=== PATIENT | male | born 1945 | race Caucasian/White ===

== ENCOUNTER 2017-09-25 10:35 | Inpatient (IN) | payer MEDICARE, BC ==
[2017-09-25] MEDS: NITROGLYCERIN 2% 1 GM OINT PKT TD (11:29)
[2017-09-25] MEDS: ASPIRIN 325 MG TAB PO (11:29)
[2017-09-25] MEDS: FUROSEMIDE 40 MG INJ IV (11:30)
[2017-09-25 11:39] LABS: ADD MAN DIFF? NO
[2017-09-25 11:41] LABS: BASOPHILS % 0.2 % (0.0-2.0); EOSINOPHILS % 0.1 % (0.0-7.0); HEMATOCRIT 34.9 % (42.0-52.0); HEMOGLOBIN 11.3 g/dl (14.0-18.0); LYMPHOCYTES # 0.6 10^3/ul (0.8-2.9); LYMPHOCYTES % 5.6 % (15.0-51.0); MEAN CORPUSCULAR HEMOGLOBIN 28.7 pg (29.0-33.0); MEAN CORPUSCULAR HGB CONC 32.4 g/dl (32.0-37.0); MEAN CORPUSCULAR VOLUME 88.6 fl (82.0-101.0); MEAN PLATELET VOLUME 10.9 fl (7.4-10.4); MONOCYTE # 1.1 10^3/ul (0.3-0.9); MONOCYTES % 9.9 % (0.0-11.0); NEUTROPHIL # 9.5 10^3/ul (1.6-7.5); NEUTROPHILS % 83.7 % (39.0-77.0); PLATELET COUNT 138 10^3/UL (140-415); POSITIVE DIFF @See below; RED BLOOD COUNT 3.94 10^6/ul (4.70-6.10); RED CELL DISTRIBUTION WIDTH 15.1 % (11.5-14.5)
[2017-09-25 11:41] LABS: WHITE BLOOD COUNT 11.4 10^3/ul (4.8-10.8)
[2017-09-25 12:15] LABS: ALANINE AMINOTRANSFERASE 42 IU/L (13-69); ALBUMIN 4.2 g/dl (3.3-4.9); ALKALINE PHOSPHATASE 87 IU/L (42-121); ANION GAP 19 (8-16); ASPARTATE AMINO TRANSFERASE 24 IU/L (15-46); BILIRUBIN,INDIRECT 0.7 mg/dl (0-1.1); BILIRUBIN,TOTAL 0.7 mg/dl (0.2-1.3); BLOOD UREA NITROGEN 12 mg/dl (7-20); CALCIUM 8.8 mg/dl (8.4-10.2); CARBON DIOXIDE 30 mmol/L (21-31); CHLORIDE 98 mmol/L (97-110); CREATININE 0.93 mg/dl (0.61-1.24); GLUCOSE 134 mg/dl (70-220); POTASSIUM 3.9 mmol/L (3.5-5.1); SODIUM 143 mmol/L (135-144)
[2017-09-25 12:19] LABS: PROTIME 14.4 Sec (11.9-14.9); PT RATIO 1.1
[2017-09-25 12:20] LABS: PARTIAL THROMBOPLASTIN TIME 31.9 Sec (25.0-35.0)
[2017-09-25 12:29] LABS: B-TYPE NATRIURETIC PEPTIDE 2550 PG/ML (0-125)
[2017-09-25] MEDS ORDERED: ACETAMINOPHEN 325 MG TAB PO (13:00)
[2017-09-25] MEDS ORDERED: ONDANSETRON 4 MG INJ IV (13:00)
[2017-09-25] MEDS ORDERED: NITROGLYCERIN (SL) 0.4 MG TAB SL (16:30)
[2017-09-25 17:48] LABS: CREATINE KINASE 79 IU/L (23-200)
[2017-09-25 18:02] LABS: CK INDEX 3.2
[2017-09-25 18:06] LABS: CK-MB 2.51 ng/ml (0.0-2.4); TROPONIN-I 0.433 ng/ml (0.00-0.12)
[2017-09-25] MEDS: METOPROLOL 50 MG TAB PO (20:41)
[2017-09-25] MEDS: DOXAZOSIN 4 MG TAB PO (20:41)
[2017-09-25] MEDS: ATORVASTATIN 80 MG TAB PO (20:41)
[2017-09-26 00:09] LABS: CREATINE KINASE 73 IU/L (23-200)
[2017-09-26 00:22] LABS: CK INDEX 2.8
[2017-09-26 00:49] LABS: CK-MB 2.01 ng/ml (0.0-2.4); TROPONIN-I 0.567 ng/ml (0.00-0.12)
[2017-09-26 07:55] LABS: ADD MAN DIFF? NO
[2017-09-26 08:07] LABS: BASOPHILS % 0.3 % (0.0-2.0); EOSINOPHILS # 0.1 10^3/ul (0.0-0.5); EOSINOPHILS % 1.2 % (0.0-7.0); HEMATOCRIT 30.1 % (42.0-52.0); HEMOGLOBIN 9.7 g/dl (14.0-18.0); LYMPHOCYTES # 0.9 10^3/ul (0.8-2.9); LYMPHOCYTES % 13.1 % (15.0-51.0); MEAN CORPUSCULAR HEMOGLOBIN 28.6 pg (29.0-33.0); MEAN CORPUSCULAR HGB CONC 32.2 g/dl (32.0-37.0); MEAN CORPUSCULAR VOLUME 88.8 fl (82.0-101.0); MEAN PLATELET VOLUME 10.8 fl (7.4-10.4); MONOCYTE # 0.8 10^3/ul (0.3-0.9); MONOCYTES % 11.3 % (0.0-11.0); NEUTROPHILS % 73.8 % (39.0-77.0); PLATELET COUNT 124 10^3/UL (140-415); RED BLOOD COUNT 3.39 10^6/ul (4.70-6.10); RED CELL DISTRIBUTION WIDTH 15.2 % (11.5-14.5)
[2017-09-26 08:07] LABS: WHITE BLOOD COUNT 6.7 10^3/ul (4.8-10.8)
[2017-09-26 08:26] LABS: ANION GAP 15 (8-16); BLOOD UREA NITROGEN 17 mg/dl (7-20); CALCIUM 8.1 mg/dl (8.4-10.2); CARBON DIOXIDE 32 mmol/L (21-31); CHLORIDE 102 mmol/L (97-110); CHOL/HDL RATIO 4.7 RATIO; CHOLESTEROL 113 mg/dl (100-200); CREATININE 1.05 mg/dl (0.61-1.24); GLUCOSE 97 mg/dl (70-220); HDL CHOLESTEROL 24 mg/dl (31-75); LDL CHOLESTEROL,CALCULATED 62 mg/dl; MAGNESIUM 2.2 mg/dl (1.7-2.5); PHOSPHORUS 5.2 mg/dl (2.5-4.9); POTASSIUM 3.9 mmol/L (3.5-5.1); SODIUM 145 mmol/L (135-144); TRIGLYCERIDES 134 mg/dl (0-149)
[2017-09-26] MEDS: AMLODIPINE 10 MG TAB PO (08:51)
[2017-09-26] MEDS: LISINOPRIL 20 MG TAB PO (08:51)
[2017-09-26] MEDS: DOCUSATE SODIUM 100 MG CAP PO (08:51)
[2017-09-26] MEDS: CLOPIDOGREL 75 MG TAB PO (08:52)
[2017-09-26] MEDS: ASPIRIN (EC) 81 MG TAB PO (08:52)
[2017-09-26] MEDS: METOPROLOL 50 MG TAB PO ×2 (08:52→21:00)
[2017-09-26] MEDS: ENOXAPARIN 40 MG/0.4 ML SYG SC (08:58)
[2017-09-26] MEDS ORDERED: HEPARIN 25000 UNITS/250 ML 250 ML IV (10:30)
[2017-09-26] MEDS ORDERED: HEPARIN 1000 UNITS/ML 10 ML INJ IV ×2 (10:30)
[2017-09-26] MEDS: ENOXAPARIN 60 MG/0.6 ML SYG SC (11:06)
[2017-09-26] MEDS: TICAGRELOR 90 MG TABLET PO ×2 (12:21→22:36)
[2017-09-26 13:02] LABS: CREATINE KINASE 65 IU/L (23-200)
[2017-09-26 13:12] LABS: CK INDEX 2.4
[2017-09-26 13:14] LABS: CK-MB 1.55 ng/ml (0.0-2.4); TROPONIN-I 0.273 ng/ml (0.00-0.12)
[2017-09-26] MEDS ORDERED: ONDANSETRON 4 MG INJ (14:27)
[2017-09-26] MEDS: ONDANSETRON 4 MG INJ IV (14:34)
[2017-09-26] MEDS: FUROSEMIDE 20 MG INJ IV (14:38)
[2017-09-26 16:34] LABS: HEMOGLOBIN A1C 5.9 % (0-5.9)
[2017-09-26] MEDS: DOXAZOSIN 4 MG TAB PO (21:00)
[2017-09-26] MEDS: ATORVASTATIN 80 MG TAB PO (22:31)
[2017-09-26] MEDS: ENOXAPARIN 100 MG/ML SYG SC (22:38)
[2017-09-27 08:25] LABS: ADD MAN DIFF? NO
[2017-09-27 08:29] LABS: WHITE BLOOD COUNT 6.5 10^3/ul (4.8-10.8)
[2017-09-27 08:29] LABS: BASOPHILS % 0.3 % (0.0-2.0); EOSINOPHILS # 0.1 10^3/ul (0.0-0.5); EOSINOPHILS % 1.4 % (0.0-7.0); HEMATOCRIT 32.7 % (42.0-52.0); HEMOGLOBIN 10.5 g/dl (14.0-18.0); LYMPHOCYTES # 0.6 10^3/ul (0.8-2.9); LYMPHOCYTES % 9.6 % (15.0-51.0); MEAN CORPUSCULAR HEMOGLOBIN 28.7 pg (29.0-33.0); MEAN CORPUSCULAR HGB CONC 32.1 g/dl (32.0-37.0); MEAN CORPUSCULAR VOLUME 89.3 fl (82.0-101.0); MONOCYTE # 0.8 10^3/ul (0.3-0.9); MONOCYTES % 12.2 % (0.0-11.0); NEUTROPHILS % 76.2 % (39.0-77.0); PLATELET COUNT 159 10^3/UL (140-415); RED BLOOD COUNT 3.66 10^6/ul (4.70-6.10); RED CELL DISTRIBUTION WIDTH 14.9 % (11.5-14.5)
[2017-09-27 08:48] LABS: ANION GAP 16 (8-16); BLOOD UREA NITROGEN 19 mg/dl (7-20); CALCIUM 8.5 mg/dl (8.4-10.2); CARBON DIOXIDE 33 mmol/L (21-31); CHLORIDE 101 mmol/L (97-110); GLUCOSE 101 mg/dl (70-220); POTASSIUM 3.8 mmol/L (3.5-5.1); SODIUM 146 mmol/L (135-144)
[2017-09-27] MEDS ORDERED: AMLODIPINE 10 MG TAB PO (09:00)
[2017-09-27] MEDS: LISINOPRIL 20 MG TAB PO (09:03)
[2017-09-27] MEDS: DOCUSATE SODIUM 100 MG CAP PO (09:03)
[2017-09-27] MEDS: ASPIRIN (EC) 81 MG TAB PO (09:04)
[2017-09-27] MEDS: AMLODIPINE 5 MG TAB PO (09:04)
[2017-09-27] MEDS: METOPROLOL 50 MG TAB PO ×2 (09:05→21:26)
[2017-09-27] MEDS: FUROSEMIDE 20 MG INJ IV (09:05)
[2017-09-27] MEDS: TICAGRELOR 90 MG TABLET PO ×2 (09:08→21:34)
[2017-09-27] MEDS: ENOXAPARIN 100 MG/ML SYG SC ×2 (09:13→21:35)
[2017-09-27] MEDS: FUROSEMIDE 40 MG INJ IV (16:47)
[2017-09-27] MEDS: ATORVASTATIN 80 MG TAB PO (21:26)
[2017-09-27] MEDS: DOXAZOSIN 4 MG TAB PO (21:27)
[2017-09-28 06:24] LABS: ADD MAN DIFF? NO
[2017-09-28 06:28] LABS: WHITE BLOOD COUNT 6.1 10^3/ul (4.8-10.8)
[2017-09-28 06:28] LABS: BASOPHILS % 0.3 % (0.0-2.0); EOSINOPHILS # 0.1 10^3/ul (0.0-0.5); HEMOGLOBIN 10.4 g/dl (14.0-18.0); LYMPHOCYTES # 0.7 10^3/ul (0.8-2.9); LYMPHOCYTES % 10.9 % (15.0-51.0); MEAN CORPUSCULAR HGB CONC 31.5 g/dl (32.0-37.0); MEAN CORPUSCULAR VOLUME 88.9 fl (82.0-101.0); MEAN PLATELET VOLUME 10.4 fl (7.4-10.4); MONOCYTE # 0.8 10^3/ul (0.3-0.9); MONOCYTES % 12.4 % (0.0-11.0); NEUTROPHIL # 4.5 10^3/ul (1.6-7.5); NEUTROPHILS % 74.1 % (39.0-77.0); PLATELET COUNT 170 10^3/UL (140-415); RED BLOOD COUNT 3.71 10^6/ul (4.70-6.10); RED CELL DISTRIBUTION WIDTH 14.6 % (11.5-14.5)
[2017-09-28 06:57] LABS: ANION GAP 14 (8-16); BLOOD UREA NITROGEN 21 mg/dl (7-20); CALCIUM 8.6 mg/dl (8.4-10.2); CARBON DIOXIDE 34 mmol/L (21-31); CHLORIDE 102 mmol/L (97-110); CREATININE 0.94 mg/dl (0.61-1.24); GLUCOSE 95 mg/dl (70-220); POTASSIUM 3.8 mmol/L (3.5-5.1); SODIUM 146 mmol/L (135-144)
[2017-09-28 08:11] LABS: MAGNESIUM 2.3 mg/dl (1.7-2.5)
[2017-09-28] MEDS: DOCUSATE SODIUM 100 MG CAP PO (09:10)
[2017-09-28] MEDS: AMLODIPINE 5 MG TAB PO (09:10)
[2017-09-28] MEDS: FUROSEMIDE 40 MG TAB PO (09:10)
[2017-09-28] MEDS: ASPIRIN (EC) 81 MG TAB PO (09:10)
[2017-09-28] MEDS: METOPROLOL 50 MG TAB PO ×2 (09:11→20:40)
[2017-09-28] MEDS: TICAGRELOR 90 MG TABLET PO ×2 (09:12→20:42)
[2017-09-28] MEDS: ENOXAPARIN 100 MG/ML SYG SC ×2 (09:13→20:45)
[2017-09-28] MEDS: ISOSORBIDE MONONITRATE(SR)30 MG TAB PO (09:27)
[2017-09-28] MEDS: LISINOPRIL 10 MG TAB PO (09:29)
[2017-09-28] MEDS: ONDANSETRON 4 MG INJ IV (14:16)
[2017-09-28] MEDS: ATORVASTATIN 80 MG TAB PO (20:39)
[2017-09-28] MEDS: DOXAZOSIN 4 MG TAB PO (20:39)
[2017-09-29] MEDS: FUROSEMIDE 40 MG TAB PO (05:56)
[2017-09-29] MEDS: ISOSORBIDE MONONITRATE(SR)30 MG TAB PO (09:05)
[2017-09-29] MEDS: ASPIRIN (EC) 81 MG TAB PO (09:06)
[2017-09-29] MEDS: LISINOPRIL 10 MG TAB PO (09:06)
[2017-09-29] MEDS: METOPROLOL 50 MG TAB PO ×2 (09:06→20:13)
[2017-09-29] MEDS: DOCUSATE SODIUM 100 MG CAP PO (09:06)
[2017-09-29] MEDS: TICAGRELOR 90 MG TABLET PO ×2 (09:07→20:14)
[2017-09-29] MEDS: AMLODIPINE 5 MG TAB PO (09:07)
[2017-09-29] MEDS: ENOXAPARIN 100 MG/ML SYG SC ×2 (09:08→21:32)
[2017-09-29] MEDS: ATORVASTATIN 80 MG TAB PO (20:13)
[2017-09-29] MEDS: DOXAZOSIN 4 MG TAB PO (20:14)
[2017-09-30] MEDS: FUROSEMIDE 40 MG TAB PO (05:41)
[2017-09-30 06:14] LABS: ADD MAN DIFF? NO
[2017-09-30 06:27] LABS: WHITE BLOOD COUNT 5.9 10^3/ul (4.8-10.8)
[2017-09-30 06:27] LABS: BASOPHILS % 0.3 % (0.0-2.0); EOSINOPHILS # 0.1 10^3/ul (0.0-0.5); EOSINOPHILS % 2.2 % (0.0-7.0); HEMATOCRIT 32.2 % (42.0-52.0); HEMOGLOBIN 10.3 g/dl (14.0-18.0); LYMPHOCYTES % 17.3 % (15.0-51.0); MEAN CORPUSCULAR HEMOGLOBIN 28.4 pg (29.0-33.0); MEAN CORPUSCULAR VOLUME 88.7 fl (82.0-101.0); MEAN PLATELET VOLUME 10.4 fl (7.4-10.4); MONOCYTE # 0.7 10^3/ul (0.3-0.9); MONOCYTES % 12.5 % (0.0-11.0); NEUTROPHILS % 67.2 % (39.0-77.0); PLATELET COUNT 160 10^3/UL (140-415); RED BLOOD COUNT 3.63 10^6/ul (4.70-6.10); RED CELL DISTRIBUTION WIDTH 14.3 % (11.5-14.5)
[2017-09-30 06:46] LABS: ALANINE AMINOTRANSFERASE 44 IU/L (13-69); ALBUMIN 3.5 g/dl (3.3-4.9); ALBUMIN/GLOBULIN RATIO 1.16; ALKALINE PHOSPHATASE 74 IU/L (42-121); ANION GAP 14 (8-16); ASPARTATE AMINO TRANSFERASE 28 IU/L (15-46); BILIRUBIN,INDIRECT 0.5 mg/dl (0-1.1); BILIRUBIN,TOTAL 0.5 mg/dl (0.2-1.3); BLOOD UREA NITROGEN 25 mg/dl (7-20); CALCIUM 8.6 mg/dl (8.4-10.2); CARBON DIOXIDE 36 mmol/L (21-31); CHLORIDE 100 mmol/L (97-110); CREATININE 0.97 mg/dl (0.61-1.24); GLUCOSE 93 mg/dl (70-220); SODIUM 146 mmol/L (135-144); TOTAL PROTEIN 6.5 g/dl (6.1-8.1)
[2017-09-30 06:53] LABS: INR 1.05; PROTIME 13.8 Sec (11.9-14.9); PT RATIO 1.1
[2017-09-30 06:54] LABS: PARTIAL THROMBOPLASTIN TIME 37.6 Sec (25.0-35.0)
[2017-09-30 07:45] LABS: MAGNESIUM 2.3 mg/dl (1.7-2.5)
[2017-09-30] MEDS: DOCUSATE SODIUM 100 MG CAP PO (08:35)
[2017-09-30] MEDS: LISINOPRIL 10 MG TAB PO (08:35)
[2017-09-30] MEDS: ISOSORBIDE MONONITRATE(SR)30 MG TAB PO (08:36)
[2017-09-30] MEDS: ASPIRIN (EC) 81 MG TAB PO (08:36)
[2017-09-30] MEDS: AMLODIPINE 5 MG TAB PO (08:36)
[2017-09-30] MEDS: METOPROLOL 50 MG TAB PO ×2 (08:36→21:07)
[2017-09-30] MEDS: TICAGRELOR 90 MG TABLET PO ×2 (08:37→21:04)
[2017-09-30] MEDS: ENOXAPARIN 100 MG/ML SYG SC ×2 (08:38→21:04)
[2017-09-30] MEDS: FUROSEMIDE 20 MG INJ IV (15:16)
[2017-09-30] MEDS: PANTOPRAZOLE (EC) 40 MG TAB PO (15:45)
[2017-09-30] MEDS: ATORVASTATIN 80 MG TAB PO (21:03)
[2017-09-30] MEDS: DOXAZOSIN 4 MG TAB PO (21:06)
[2017-10-01] MEDS: PANTOPRAZOLE (EC) 40 MG TAB PO (06:04)
[2017-10-01] MEDS: FUROSEMIDE 40 MG TAB PO (06:04)
[2017-10-01 06:38] LABS: ADD MAN DIFF? NO
[2017-10-01 06:50] LABS: BASOPHILS % 0.3 % (0.0-2.0); EOSINOPHILS # 0.1 10^3/ul (0.0-0.5); EOSINOPHILS % 1.7 % (0.0-7.0); HEMATOCRIT 32.9 % (42.0-52.0); HEMOGLOBIN 10.7 g/dl (14.0-18.0); LYMPHOCYTES # 0.9 10^3/ul (0.8-2.9); LYMPHOCYTES % 15.1 % (15.0-51.0); MEAN CORPUSCULAR HEMOGLOBIN 28.6 pg (29.0-33.0); MEAN CORPUSCULAR HGB CONC 32.5 g/dl (32.0-37.0); MEAN PLATELET VOLUME 10.9 fl (7.4-10.4); MONOCYTE # 0.8 10^3/ul (0.3-0.9); MONOCYTES % 12.8 % (0.0-11.0); NEUTROPHIL # 4.1 10^3/ul (1.6-7.5); NEUTROPHILS % 69.8 % (39.0-77.0); PLATELET COUNT 166 10^3/UL (140-415); RED BLOOD COUNT 3.74 10^6/ul (4.70-6.10); RED CELL DISTRIBUTION WIDTH 14.3 % (11.5-14.5)
[2017-10-01 06:50] LABS: WHITE BLOOD COUNT 5.8 10^3/ul (4.8-10.8)
[2017-10-01 07:30] LABS: ANION GAP 17 (8-16); BLOOD UREA NITROGEN 24 mg/dl (7-20); CALCIUM 8.6 mg/dl (8.4-10.2); CARBON DIOXIDE 34 mmol/L (21-31); CHLORIDE 99 mmol/L (97-110); CREATININE 0.98 mg/dl (0.61-1.24); GLUCOSE 96 mg/dl (70-220); MAGNESIUM 2.4 mg/dl (1.7-2.5); POTASSIUM 3.8 mmol/L (3.5-5.1); SODIUM 146 mmol/L (135-144)
[2017-10-01] MEDS: AMLODIPINE 5 MG TAB PO (09:00)
[2017-10-01] MEDS: METOPROLOL 50 MG TAB PO ×2 (09:00→21:42)
[2017-10-01] MEDS: DOCUSATE SODIUM 100 MG CAP PO (09:10)
[2017-10-01] MEDS: ASPIRIN (EC) 81 MG TAB PO (09:10)
[2017-10-01] MEDS: TICAGRELOR 90 MG TABLET PO ×2 (09:11→21:43)
[2017-10-01] MEDS: ENOXAPARIN 100 MG/ML SYG SC ×2 (10:03→21:44)
[2017-10-01] MEDS: ISOSORBIDE MONONITRATE(SR)30 MG TAB PO (10:06)
[2017-10-01] MEDS: LISINOPRIL 10 MG TAB PO (10:06)
[2017-10-01] MEDS: SOD CHLORIDE 0.9% 100 ML (15:46)
[2017-10-01] MEDS: IOHEXOL 300MG/ML 150 ML BTL (15:46)
[2017-10-01] MEDS: ALBUTEROL 0.083% (NEB) 2.5 MG/3 ML AMP HHN ×2 (17:00→20:14)
[2017-10-01] MEDS: CEFEPIME 1GM/50 ML (PMX) 50 ML IVPB (21:41)
[2017-10-01] MEDS: DOXAZOSIN 4 MG TAB PO (21:42)
[2017-10-01] MEDS: ATORVASTATIN 80 MG TAB PO (21:42)
[2017-10-02] MEDS: ALBUTEROL 0.083% (NEB) 2.5 MG/3 ML AMP HHN ×2 (02:10→05:32)
[2017-10-02 05:53] LABS: ADD MAN DIFF? NO
[2017-10-02 05:58] LABS: BASOPHILS % 0.3 % (0.0-2.0); EOSINOPHILS # 0.1 10^3/ul (0.0-0.5); EOSINOPHILS % 1.5 % (0.0-7.0); HEMATOCRIT 31.9 % (42.0-52.0); HEMOGLOBIN 10.3 g/dl (14.0-18.0); LYMPHOCYTES % 17.2 % (15.0-51.0); MEAN CORPUSCULAR HEMOGLOBIN 28.7 pg (29.0-33.0); MEAN CORPUSCULAR HGB CONC 32.3 g/dl (32.0-37.0); MEAN CORPUSCULAR VOLUME 88.9 fl (82.0-101.0); MEAN PLATELET VOLUME 10.5 fl (7.4-10.4); MONOCYTE # 0.7 10^3/ul (0.3-0.9); MONOCYTES % 12.2 % (0.0-11.0); NEUTROPHILS % 68.1 % (39.0-77.0); PLATELET COUNT 175 10^3/UL (140-415); RED BLOOD COUNT 3.59 10^6/ul (4.70-6.10); RED CELL DISTRIBUTION WIDTH 14.1 % (11.5-14.5)
[2017-10-02 05:58] LABS: WHITE BLOOD COUNT 5.8 10^3/ul (4.8-10.8)
[2017-10-02 06:23] LABS: ANION GAP 11 (8-16); BLOOD UREA NITROGEN 19 mg/dl (7-20); CALCIUM 8.6 mg/dl (8.4-10.2); CARBON DIOXIDE 37 mmol/L (21-31); CHLORIDE 102 mmol/L (97-110); CREATININE 0.94 mg/dl (0.61-1.24); GLUCOSE 95 mg/dl (70-220); POTASSIUM 3.6 mmol/L (3.5-5.1); SODIUM 146 mmol/L (135-144)
[2017-10-02] MEDS: PANTOPRAZOLE (EC) 40 MG TAB PO (06:38)
[2017-10-02] MEDS: FUROSEMIDE 40 MG TAB PO (06:40)
[2017-10-02] MEDS: CEFEPIME 1GM/50 ML (PMX) 50 ML IVPB (08:09)
[2017-10-02] MEDS: ENOXAPARIN 100 MG/ML SYG SC (08:10)
[2017-10-02] MEDS: METOPROLOL 50 MG TAB PO (08:11)
[2017-10-02] MEDS: ISOSORBIDE MONONITRATE(SR)30 MG TAB PO (08:11)
[2017-10-02] MEDS: DOCUSATE SODIUM 100 MG CAP PO (08:11)
[2017-10-02] MEDS: LISINOPRIL 10 MG TAB PO (08:11)
[2017-10-02] MEDS: AMLODIPINE 5 MG TAB PO (08:11)
[2017-10-02] MEDS: TICAGRELOR 90 MG TABLET PO (08:12)
[2017-10-02] MEDS: ASPIRIN (EC) 81 MG TAB PO (08:12)
[2017-10-02] MEDS ORDERED: ALBUTEROL HFA 8 GM INHALER INH (17:00)
== END 2017-10-02 16:10 | disposition home or self-care (01) | DRG 282 ==
LOC: PP2 09-29 16:25 → E/R 10:35 → MS4 12:43
DX: I11.0 Hypertensive heart disease with heart failure (principal); I21.4 Non-ST elevation (NSTEMI) myocardial infarction; I73.9 Peripheral vascular disease, unspecified; R06.89 Other abnormalities of breathing; E78.5 Hyperlipidemia, unspecified; I50.43 Acute on chronic combined systolic (congestive) and diastolic (congestive) heart failure; Z95.2 Presence of prosthetic heart valve; S70.11XA Contusion of right thigh, initial encounter; X58.XXXA Exposure to other specified factors, initial encounter; Z95.1 Presence of aortocoronary bypass graft; Z79.82 Long term (current) use of aspirin
CPT/HCPCS: 36415; 71045; 71260; 80048; 80053; 80061; 82550; 82553; 82962; 83036; 83735; 83880; 84100; 84443; 84484; 85025; 85610; 85730; 93005; 93306; 94640; 94664; 96374; 99285-25; J1940